=== PATIENT | female | born 1960 | race American Indian/Alaskan Native ===

== ENCOUNTER 2018-10-27 08:00 | Outpatient (CLI) | payer MEDICAID ==
[2018-10-27 19:40] LABS: BILIRUBIN,URINE NEGATIVE (NEGATIVE); GLUCOSE, URINE (UA) NEGATIVE (NEGATIVE); KETONES,URINE (UA) NEGATIVE (NEGATIVE); LEUKOCYTE ESTERASE, URINE NEGATIVE (NEGATIVE); NITRITE,URINE NEGATIVE (NEGATIVE); OCCULT BLOOD,URINE SMALL (NEGATIVE); PROTEIN,URINE NEGATIVE (NEGATIVE); UROBILINOGEN,URINE 0.2 (NORMAL) E.U./dL (NORMAL)
[2018-10-27 19:48] LABS: CLARITY,URINE CLEAR (CLEAR)
[2018-10-27 21:02] LABS: BACTERIA,URINE None Seen /HPF (None Seen); RBC,URINE 0-5 /HPF (0-5); SQUAMOUS EPITHELIAL CELL,UR RARE Squamous (<= Few)
== END 2018-10-27 23:59 | disposition home or self-care (01) ==
LOC: LAB.R 08:00
PROVIDERS: ATTEND Nurse Practitioner Gerontology
DX: R30.0 Dysuria (principal)
CPT/HCPCS: 81001; 81003; 87086

== ENCOUNTER 2018-10-31 08:00 | Outpatient (CLI) | payer MEDICAID ==
[2018-10-31 12:35] LABS: BILIRUBIN,URINE NEGATIVE (NEGATIVE); GLUCOSE, URINE (UA) NEGATIVE (NEGATIVE); KETONES,URINE (UA) NEGATIVE (NEGATIVE); LEUKOCYTE ESTERASE, URINE NEGATIVE (NEGATIVE); NITRITE,URINE NEGATIVE (NEGATIVE); OCCULT BLOOD,URINE MODERATE (NEGATIVE); PROTEIN,URINE NEGATIVE (NEGATIVE); UROBILINOGEN,URINE 1 (NORMAL) E.U./dL (NORMAL)
[2018-10-31 12:37] LABS: CLARITY,URINE HAZY (CLEAR)
[2018-10-31 13:12] LABS: BACTERIA,URINE Rare /HPF (None Seen); SQUAMOUS EPITHELIAL CELL,UR FEW Squamous (<= Few)
== END 2018-10-31 23:59 | disposition home or self-care (01) ==
LOC: LAB.N 08:00
PROVIDERS: ATTEND Nurse Practitioner Gerontology
DX: R30.0 Dysuria (principal)
CPT/HCPCS: 81001; 81003; 87086

== ENCOUNTER 2018-11-07 15:17 | Outpatient (CLI) | payer MEDICAID ==
[2018-11-07 18:31] LABS: BILIRUBIN,URINE NEGATIVE (NEGATIVE); GLUCOSE, URINE (UA) NEGATIVE (NEGATIVE); KETONES,URINE (UA) NEGATIVE (NEGATIVE); LEUKOCYTE ESTERASE, URINE NEGATIVE (NEGATIVE); NITRITE,URINE NEGATIVE (NEGATIVE); OCCULT BLOOD,URINE MODERATE (NEGATIVE); PH,URINE 6.5 PH (5.0-7.5); PROTEIN,URINE NEGATIVE (NEGATIVE); UROBILINOGEN,URINE 0.2 (NORMAL) E.U./dL (NORMAL)
[2018-11-07 18:55] LABS: BACTERIA,URINE Rare /HPF (None Seen); CLARITY,URINE CLEAR (CLEAR); SQUAMOUS EPITHELIAL CELL,UR FEW Squamous (<= Few)
[2018-11-07 18:56] LABS: CRYSTALS,URINE 6-10 Calcium Oxalate /LPF
== END 2018-11-07 23:59 | disposition home or self-care (01) ==
LOC: LAB.N 15:17
PROVIDERS: ATTEND Physician Assistant Medical
DX: R30.0 Dysuria (principal)
CPT/HCPCS: 81001; 87086

== ENCOUNTER 2018-11-13 13:41 | Outpatient (CLI) | payer MEDICAID | END 2018-11-13 13:42 | disposition home or self-care (01) | LOC: SC 13:41 | PROVIDERS: ATTEND Internal Medicine Pulmonary Disease | DX: G47.33 Obstructive sleep apnea (adult) (pediatric) (principal); E66.9 Obesity, unspecified; Z68.39 Body mass index [BMI] 39.0-39.9, adult | CPT/HCPCS: 99203; 99212 ==

== ENCOUNTER 2018-11-13 14:08 | Outpatient (CLI) | payer MEDICAID ==
--- NOTE | 2018-11-14 15:53 | XRAY Report ---
Reason: SHOULDER JOINT PAIN,RIGHT Procedure Date: 11/13/2018 Accession Number: [id number] / [id number] Procedure: XRN - Shoulder 3 View RT CPT Code: FULL RESULT: EXAM: RIGHT SHOULDER RADIOGRAPHY EXAM DATE: 11/13/2018 02:19 PM. CLINICAL HISTORY: Shoulder joint pain, right. COMPARISON: None. TECHNIQUE: 3 views. FINDINGS: Bones: Normal. No fracture or bone lesion. Joints: The glenohumeral and acromioclavicular joints are normally aligned with note of mild glenohumeral degenerative changes. Soft tissues: The visualized hemithorax is unremarkable. No soft tissue swelling. IMPRESSION: 1. No acute abnormality seen in the right shoulder. 2. Mild glenohumeral degenerative changes. RADIA
== END 2018-11-13 14:09 | disposition home or self-care (01) ==
LOC: DI.N 14:08
PROVIDERS: ATTEND Family Medicine
DX: M19.011 Primary osteoarthritis, right shoulder (principal)

== ENCOUNTER → 2018-11-24 | Outpatient (CLI) | payer MEDICAID | LOC: SC 19:30 | PROVIDERS: ATTEND Internal Medicine Pulmonary Disease | DX: G47.33 Obstructive sleep apnea (adult) (pediatric) (principal) | CPT/HCPCS: 95806 ==

== ENCOUNTER 2019-02-12 10:51 | Outpatient (CLI) | payer MEDICAID ==
--- NOTE | 2019-02-12 12:59 | SLEEP CARE CONSULTATION ---
Information from patient questionnaire entered by Maya Weldon. I have reviewed and concur with the information entered by Maya Weldon. This document represents the service I personally performed and the decisions made by me, Wendy Garcia MD, [facility]. History of Present Illness Initial [place] Sleepiness Scale score: 3 Current [place] Sleepiness Scale score: 5 Additional HPI information: HPI: returned for follow up of the sleep study she had on 11/24/2018. The test shows mild obstructive sleep apnea-hypopnea with an AHI of 7.6 and remigio oxygen saturation of 85%. The respiratory events occurred almost exclusively during supine sleep. The patient was informed of these findings. I explained to her the pathophysiology behind obstructive sleep apnea. We then spent quite a bit of time discussing different treatment options. For mild obstructive sleep apnea, surgery and oral appliance are alternatives to nasal CPAP therapy but in moderate or severe cases, nasal CPAP is the most effective and reliable treatment. After some discussion, she opted to restart using CPAP. The patient used CPAP for many years until it broke. She wore nasal pillows. Allergies and Home Medications Drug allergies reviewed: Yes Home medication list reviewed: Yes Review of Systems Review of systems same as previous: Yes Physical Exam Weight: 211 lb Impression and Plan IMPRESSION: 1. Obstructive Sleep Apnea-Hypopnea Syndrome, mild, associated with mild hypoxemia. The patient has hypertension which makes the positive airway pressure therapy indicated. I will prescribe her a new autoCPAP and set it empirically at 4 8 cmH2O. I anticipate good treatment compliance. PLAN: 1. Prescription made for an autoCPAP with heated humidifier and related supplies. 2. Attempt to lose weight. 3. Avoid sleeping supine if not using CPAP. 4. Return for follow up after one month on the new machine. I spent 100% of this [15][30] minute visit face to face with the patient with greater than 50% of this was spent time counseling the patient and coordination of care.
== END 2019-02-12 10:52 | disposition home or self-care (01) ==
LOC: SC 10:51
PROVIDERS: ATTEND Internal Medicine Pulmonary Disease
DX: G47.33 Obstructive sleep apnea (adult) (pediatric) (principal)
CPT/HCPCS: 99212; 99213

== ENCOUNTER 2019-04-20 09:29 | Outpatient (CLI) | payer MEDICAID ==
--- NOTE | 2019-04-21 11:14 | MRI Report ---
Reason: SHOULDER JOINT PAIN RT Procedure Date: 04/20/2019 Accession Number: [id number] / [id number] Procedure: MRI - Shoulder RT W/O CPT Code: Final Report FULL RESULT: EXAM: RIGHT SHOULDER MRI WITHOUT CONTRAST EXAM DATE: 04/20/2019 10:42 AM. CLINICAL HISTORY: Shoulder joint pain right. COMPARISON: SHOULDER 3 VIEW RT 11/13/2018 2:25 PM. TECHNIQUE: Multiplanar, multisequence T1-weighted and fluid-sensitive sequences of the shoulder without contrast. Other: None. FINDINGS: Rotator cuff: Ill-defined full-thickness or near full-thickness tear of the distal supraspinatus measures approximately 1.5 cm in the medial to lateral and anteroposterior dimensions. Possibility of a small number of articular surface fibers remaining intact. Thickening and increased T2 signal involving distal fibers of the infraspinatus. No significant rotator cuff muscle atrophy. Long head biceps tendon: Intact demonstrating normal course, signal and morphology. Labrum: Grossly intact. No tear identified. Bones and Articular Surfaces: Mild cartilage thinning in the glenohumeral joint. No full-thickness articular cartilage defect. Acromioclavicular Joint: Moderate degenerative change. Type II acromion. Small volume of fluid in the subacromial-subdeltoid bursa. IMPRESSION: 1. Ill-defined full-thickness versus near full-thickness tear of the distal supraspinatus measuring 1.5 x 1.5 cm. 2. Moderate infraspinatus tendinosis. 3. Moderate degenerative change at the acromioclavicular joint. RADIA
== END 2019-04-20 09:30 | disposition home or self-care (01) ==
LOC: DI 09:29
PROVIDERS: ATTEND Physician Assistant Medical
DX: M19.011 Primary osteoarthritis, right shoulder (principal); M75.101 Unspecified rotator cuff tear or rupture of right shoulder, not specified as traumatic; M75.81 Other shoulder lesions, right shoulder

== ENCOUNTER 2019-07-06 11:13 | Outpatient (CLI) | payer MEDICAID ==
[2019-07-06 18:46] LABS: BASOPHILS % (AUTO) 0.3 %; EOSINOPHILS # (AUTO) 0.3 10^3/uL (0.0-0.7); EOSINOPHILS % (AUTO) 4.3 %; HGB - HEMOGLOBIN 13.2 g/dL (12.0-16.0); LYMPHOCYTES # (AUTO) 1.4 10^3/uL (1.5-3.5); LYMPHOCYTES % (AUTO) 22.3 %; MEAN CORPUSCULAR HEMOGLOBIN 25.2 pg (27.0-31.0); MEAN CORPUSCULAR HGB CONC 30.3 g/dL (32.0-36.0); MONOCYTES # (AUTO) 0.5 10^3/uL (0.0-1.0); MONOCYTES % (AUTO) 7.8 %; NEUTROPHILS # (AUTO) 4.1 10^3/uL (1.5-6.6); PLT - PLATELET COUNT 406 10^3/uL (130-450); RED BLOOD COUNT 5.24 10^6/uL (4.20-5.40); RED CELL DISTRIBUTION WIDTH 15.8 % (12.0-15.0); WHITE BLOOD COUNT 6.3 x10^3/uL (4.8-10.8)
[2019-07-06 19:09] LABS: ALBUMIN 3.8 g/dL (3.2-5.5); BILIRUBIN,TOTAL 0.5 mg/dL (0.2-1.0); CALCIUM 8.9 mg/dL (8.5-10.3); CREATININE 0.7 mg/dL (0.4-1.0); TOTAL PROTEIN 7.5 g/dL (6.7-8.2)
== END 2019-07-06 23:59 | disposition home or self-care (01) ==
LOC: LAB.N 11:13
PROVIDERS: ATTEND Physician Assistant Medical
DX: Z01.812 Encounter for preprocedural laboratory examination (principal)
CPT/HCPCS: 36415; 80053; 83880; 85025

== ENCOUNTER 2019-07-09 12:56 | Outpatient (CLI) | payer MEDICAID ==
--- NOTE | 2019-07-10 13:09 | XRAY Report ---
Reason: PREOP EXAM Procedure Date: 07/09/2019 Accession Number: [id number] / [id number] Procedure: XRN - Chest 2 View X-Ray CPT Code: 15426 Final Report FULL RESULT: EXAM: CHEST RADIOGRAPHY EXAM DATE: 07/09/2019 01:08 PM. CLINICAL HISTORY: PREOP EXAM. COMPARISON: None. TECHNIQUE: 2 views. FINDINGS: Lungs/Pleura: No focal opacities evident. No pleural effusion. No pneumothorax. Decreased volumes. Biapical pleural thickening Mediastinum: Heart and mediastinal contours are unremarkable. Other: None. IMPRESSION: No active cardiopulmonary disease RADIA
== END 2019-07-09 12:57 | disposition home or self-care (01) ==
LOC: DI.N 12:56
PROVIDERS: ATTEND Physician Assistant Medical
DX: Z01.818 Encounter for other preprocedural examination (principal)
CPT/HCPCS: 71046

== ENCOUNTER 2019-07-16 08:00 | Outpatient (CLI) | payer MEDICAID | END 2019-07-16 23:59 | disposition home or self-care (01) | LOC: LAB.R 08:00 | PROVIDERS: ATTEND Orthopaedic Surgery Sports Medicine | DX: Z01.812 Encounter for preprocedural laboratory examination (principal); M75.51 Bursitis of right shoulder; M75.121 Complete rotator cuff tear or rupture of right shoulder, not specified as traumatic | CPT/HCPCS: 87640 ==

== ENCOUNTER 2019-07-18 06:09 | Day surgery (SDC) | payer MEDICAID ==
[2019-07-18] MEDS ORDERED: CEFAZOLIN SODIUM IN 0.9 % NACL 2 GM/100 ML BAG IV ONE (06:16)
[2019-07-18] MEDS ORDERED: EPINEPHrine 1 MG/ML AMP ONE (06:39)
[2019-07-18] MEDS ORDERED: BUPIVACAINE 0.25% PF 30 ML VIAL ONE (06:39)
[2019-07-18] MEDS ORDERED: LACTATED RINGERS 1,000 ML IV ONE ×2 (07:05→10:28)
--- NOTE | 2019-07-18 07:08 | ANESTHESIA ---
Pre-Anesthesia VS, & Labs - Diagnosis right shoulder rotator cuff tear - Procedure right shoulder arthroscopy/ rotator cuff repair Vital Signs: Temp Pulse Resp BP Pulse Ox 36.3 C L 50 L 16 124/66 97 07/18/19 06:39 07/18/19 06:39 07/18/19 06:39 07/18/19 06:39 07/18/19 06:39 Height 5 ft 1 in Weight (kg) 97.7 kg Body Mass Index 39.1 - Is Patient ?: Yes Home Medications and Allergies Home Medications: Ambulatory Orders FLUoxetine [PROzac] 10 mg PO DAILY 07/16/19 FLUoxetine [PROzac] 10 mg PO DAILY 07/16/19 Allergies/Adverse Reactions: Allergies Allergy/AdvReac Type Severity Reaction Status Date / Time kiwi Allergy Anaphylaxis Verified 07/16/19 11:01 latex Allergy Rash Verified 07/16/19 11:01 Penicillins Allergy Hives Verified 07/16/19 11:01 Sulfa (Sulfonamide Allergy Hives Verified 07/16/19 11:01 Antibiotics) Anes History & Medical History - Anesthetic History Anesthesia Complications: reports: No previous complications, Post-Operative Nausea/Vomiting Family history of Anesthesia Complications: Denies Family history of Malignant Hyperthermia: Denies - Medical History Cardiovascular: reports: Hypertension, High cholesterol, Atrial fibrillation Pulmonary: reports: COPD, Sleep apnea, CPAP use Gastrointestinal: reports: Colon polyps Urinary: reports: Incontinence Neuro: reports: None Musculoskeletal: reports: Osteoarthritis, Rheumatoid arthritis, Chronic back pain Endocrine/Autoimmune: reports: None Blood Disorders: reports: None Skin: reports: Eczema Smoking Status: Former smoker Psychosocial: reports: Depression - Surgical History General: Cholecystectomy, Gastric surgery Eyes Ears Nose Throat (EENT): Cataracts, Tonsil/Adenoidectomy Gynecologic: Hysterectomy Orthopedic: Arthroscopic surgery, Other Exam General: Alert, Oriented x3, Cooperative, No acute distress Dental: Dentures full Upper, Dentures full Lower Mouth Openin Fingerbreadth Neck Mobility: Normal Mallampati classification: III Thyromental Distance: less than 4 cm Respiratory: Lungs clear, Normal breath sounds, No respiratory distress, No accessory muscle use Cardiovascular: Regular rate, Normal S1, Normal S2, No murmurs Abdomen: Normal bowel sounds, Soft, No tenderness, No hepatospenomegaly, No masses Extremities: No clubbing, No cyanosis, No edema, Normal pulses, No tenderness/swelling Neurological: Normal gait, Normal speech, Strength at 5/5 X4 ext, Normal tone, Sensation intact, Cranial nerves 3-12 NL, Reflexes 2+ Mental/Cognitive Status: Alert/Oriented X3, Normal for patient Cognitive Status: Within normal limits Plan Anesthesia Type: General, Supraclavicular Block Regional Block: Per Surgeon's request for Post Op pain control Consent for Procedure(s) Verified and Reviewed: Yes Code Status: Attempt Resuscitation ASA classification: 2-Mild systemic disease Is this case an emergency?: No
[2019-07-18] MEDS ORDERED: SCOPOLAMINE PATCH TOP ONE ×2 (07:10→07:30)
[2019-07-18] MEDS ORDERED: ROPIVACAINE 0.5% PF 20 ML AMPULE ONE (07:18)
[2019-07-18] MEDS ORDERED: LIDOCAINE-MPF 2% 5 ML VIAL IM ONE (07:44)
[2019-07-18] MEDS ORDERED: ePHEDrine 50 MG/ML VIAL IVP ONE (07:44)
[2019-07-18] MEDS ORDERED: DEXAMETHASONE 4 MG/ML VIAL IVP ONE (07:44)
[2019-07-18] MEDS ORDERED: ROCURONIUM 50 MG/5 ML VIAL IVP ONE (07:44)
[2019-07-18] MEDS ORDERED: PROPOFOL 200 MG/20 ML VIAL IVP ONE (07:44)
[2019-07-18] MEDS ORDERED: MIDAZOLAM 2 MG/2 ML VIAL IVP ONE (07:44)
[2019-07-18] MEDS ORDERED: ONDANSETRON 4 MG/2 ML VIAL IVP ONE (07:44)
[2019-07-18] MEDS ORDERED: GLYCOPYRROLATE 1 MG/5 ML VIAL IVP ONE (07:44)
[2019-07-18] MEDS ORDERED: BUPIVACAINE 0.25% PF 30 ML VIAL SUBQ ONE (09:30)
[2019-07-18] MEDS ORDERED: oxyCODONE 5 MG TABLET PO PRN (09:39)
[2019-07-18] MEDS ORDERED: ONDANSETRON 4 MG/2 ML VIAL IVP PRN (09:39)
--- NOTE | 2019-07-18 09:44 | IMMEDIATE POSTOPERATIVE NOTE ---
Immediate Postoperative Note - Procedure Note Procedure Date: 07/18/19 Pre-Op Diagnosis: Right shoulder subacromial impingement/bursitis, rotator cuff Procedure: Right shoulder arthroscopic subacromial decompression and rotator cuff repair Post-Op Diagnosis: Same Bariatric Coordinator: None Anesthesia Type: General ET tube, Local, Regional block Findings: As above Complications: No complications Estimated Blood Loss (in cc): 50 Drains, Catheters, Devices: Arthrex bio composite triple play anchors x2 Specimens and Cultures: None Plan of Care: Patient tolerated procedure well instrument and sponge counts correct patient transferred recovery room in stable condition. Recommend standard postoperative protocol right rotator cuff repair
[2019-07-18] MEDS ORDERED: ONDANSETRON 4 MG/2 ML VIAL ONE ×2 (10:23→11:26)
[2019-07-18 11:08] VITALS: BP 128/75
--- NOTE | 2019-07-18 12:03 | OPERATIVE REPORT ---
DATE OF SERVICE: 07/18/2019 Physician: Mac Duarte MD SURGEON: Mac Duarte MD RET[employer] ADVERTISING SALES MANAGER: None. ANESTHESIOLOGIST: Isiah Causey CRNA ANESTHESIA TYPE: General anesthesia, endotracheal. Right upper extremity an ultrasound-guided region al block, as well as 30 mL of 0.25% plain Marcaine local. PREOPERATIVE DIAGNOSES 1. Right shoulder rotator cuff tear. 2. Right shoulder subacromial impingement/bursitis. POSTOPERATIVE DIAGNOSES 1. Right shoulder rotator cuff tear. 2. Right shoulder subacromial impingement/bursitis. PROCEDURES 1. Right shoulder arthroscopic rotator cuff repair of supraspinatus. 2. Right shoulder arthroscopic subacromial decompression conversion to type 1 acromion. INTRAOPERATIVE COMPLICATIONS: None noted. INTRAOPERATIVE FINDINGS: The patient noted to have a full-thickness rotator cuff tear of the suprasp inatus. No other significant rotator cuff injury appreciated. Biceps in the groove with no evidence of subluxation. Minimal, less than 5% fraying at the origin in the superior labrum of the long head biceps. Remainder of the rotator cuff okay. Anterior spur on the acromion converted to type 1. Post -fixation of rotator cuff tear, which is full-thickness supraspinatus tear, shows near anatomic posit ion of the rotator cuff to footprint with good integrity of the repair. HISTORY OF PRESENT ILLNESS AND INDICATIONS: Debbie is a 59-year-old female with right shoulder pain, found to have a full-thickness rotator cuff injury. She had intermittent symptoms in the muscle anne y of the biceps, but no anterior biceps findings clinically preoperatively or radiographically. She is indicated for operative treatment. Please see risks, benefits, alternatives previously reviewed. These are again highlighted in the preoperative care unit. Her questions are answered. She verbali zed understanding of the above and verbalized wish to proceed with operative treatment. Informed con sent is given. PROCEDURES IN DETAIL: On 07/18/2019, patient was identified in the preoperative care unit. She iden tifies her right shoulder as the operative site. This is signed. The patient received preoperative weight-based IV antibiotics, is brought to the operating room. General anesthesia is administered. She is then placed carefully in [id number] lateral decubitus position with appropriately placed a xillary roll to avoid encumbrance of the axilla. Down leg is gel padded. SCD boots are in place. T here are pillows between the legs, beanbag positioner is used to position. Breast tissue is protected . Head and neck are protected. At this point, patient's right upper extremity is draped out, and th e right shoulder and right upper extremity are pre-scrubbed with Hibiclens solution, followed by alco hol, followed by ChloraPrep and draped under sterile conditions. A combination of 10 or 15 pounds of traction are used, using the arm avelar. At this time, surgical pause identifies the right shoulder as the operative site. At this point, loc al anesthetic is infused anteriorly, laterally and posteriorly on the right shoulder. At this point, a small stab incision is made posteriorly. Scope is introduced into the joint. Diagnostic arthrosc opy is carried out. Also note that there is minimal chondromalacia grade 1-2 of the glenohumeral jeremy nt. At this point, outside-in technique creates a portal in the rotator interval. Shaver is brought here to gently debride the undersurface of the rotator cuff tear, which is marked using a PDS. The probe is used to examine the biceps to demonstrate that there is no significant subluxation appreciat ed. At this point, attention is directed to the subacromial space where the posterior portal is redi rected. Lateral incision is made. Shaver is brought from the lateral portal and then subacromial de compression using a combination of meniscal shaver and electrocautery type device with appropriate fl ow to avoid thermal injury is used to decompress soft tissue, followed by burring of the anterior asp ect of the acromion to convert to type 1 acromion. At this point, attention is directed towards the rotator cuff tear, which is cleaned using a shaver a s well as a meniscal basket to freshen the edge. The bur is used to debride the rotator footprint an d at this point, an auxiliary anterolateral incision created such that two sequential anchors could b e placed, one anterior and posterior in the rotator cuff footprint, followed by passage of the five s imple sutures from these anchors and a posterior horizontal mattress suture. These are then tied in reverse order, thereby reopposing the rotator cuff to the footprint, and suture limbs are tied and th en cut to the appropriate length. The rotator cuff is probed and noted to be stable with no signific ant lifting or dog-ear appearance. At this point, subacromial space is copiously irrigated and evacu ated and instruments are removed. Arthroscopic portals are closed using interrupted nylon suture. S kin is washed and dried. Xeroform dressing is applied. Dry sterile dressings applied. ABD pad is ap plied with Micropore tape. The patient is placed in abduction pillow sling. The patient tolerated the procedure well. Instrument and sponge counts are correct. The patient is transferred to the recovery room in stable condition. She will follow standard postoperative [facility] rotator cuff repair protocol. She is given perioperative antibiotic prescription and analgesic prescription. Will use [id number] nter bowel regimen while on narcotic analgesics. She denies any contraindication to medications pres cribed and will use them as directed. She will follow up in 10-14 days or sooner on an as-needed bas is. TD: 07/18/2019 10:16
== END 2019-07-18 06:10 | disposition home or self-care (01) ==
LOC: SDS 06:09
PROVIDERS: ATTEND Orthopaedic Surgery Sports Medicine
PROC: 0LQ14ZZ Repair Right Shoulder Tendon, Percutaneous Endoscopic Approach (ICD-10-PCS; 2019-07-18)
PROC: 0RHJ44Z Insertion of Internal Fixation Device into Right Shoulder Joint, Percutaneous Endoscopic Approach (ICD-10-PCS; 2019-07-18)
PROC: 0RNJ4ZZ Release Right Shoulder Joint, Percutaneous Endoscopic Approach (ICD-10-PCS; principal; 2019-07-18 07:30)
DX: M75.121 Complete rotator cuff tear or rupture of right shoulder, not specified as traumatic (principal); M75.51 Bursitis of right shoulder; M75.41 Impingement syndrome of right shoulder; M94.211 Chondromalacia, right shoulder; I10 Essential (primary) hypertension; G47.30 Sleep apnea, unspecified; I48.91 Unspecified atrial fibrillation; E66.9 Obesity, unspecified; Z68.39 Body mass index [BMI] 39.0-39.9, adult; Z87.891 Personal history of nicotine dependence
CPT/HCPCS: 29826; 29827; C1713; J0690; J3490; J7120